=== PATIENT | male | born 1965 | race African-American/Black ===

== ENCOUNTER 2022-12-22 07:39 | Emergency (ER) | payer SELFPAY ==
[~2022-12-22] VITALS: Ht 182.9 cm; Wt 85.5 kg
[~2022-12-22 07:39] MED LIST: LOPRESSOR 550 MG/TAB PO; MEVACOR10 MG PO; NORVASC 10MG10 MG PO; ZESTRIL 10MG10 MG PO
[2022-12-22 07:46] VITALS: TEMP 97.5
[2022-12-22 09:30] VITALS: BP 168/98; PULSE 68
== END 2022-12-22 09:30 | disposition home or self-care (01) ==
LOC: COL.ER 07:39
DX: R04.0 Epistaxis (principal); I10 Essential (primary) hypertension; F17.210 Nicotine dependence, cigarettes, uncomplicated